=== PATIENT | male | born 1995 | race Caucasian/White ===

== ENCOUNTER 2018-06-11 10:47 | Emergency (ER) | payer MEDICAID ==
[~2018-06-11] VITALS: Ht 175.3 cm; Wt 86.2 kg
[2018-06-11 10:47] VITALS: BP_SYST 126
--- NOTE | 2018-06-11 10:47 | NUR ---
BROUGHT IN BY [facility] AND PLACED IN BED #1, REPORT GIVEN TO ROBERTO
--- NOTE | 2018-06-11 11:10 | NUR ---
MARBIN Kang at bedside examining patient.
--- NOTE | 2018-06-11 11:35 | NUR ---
PATIENT LYING DOWN ON THE GURNEY, COMFORTABLE, NON VERBAL, FACE CALM.
[2018-06-11 11:58] LABS: BASOPHILS % (AUTO) 0.2 % (0.0-2.0); EOSINOPHILS # (AUTO) 0.1 K/uL (0.0-0.4); EOSINOPHILS % (AUTO) 1.1 % (0.0-4.0); HEMATOCRIT 45.5 % (36-54); HEMOGLOBIN 15.6 g/dL (14.0-18.0); LYMPHOCYTES # (AUTO) 1.8 K/uL (1.0-5.5); LYMPHOCYTES % (AUTO) 31.3 % (20.5-51.5); MEAN CORPUSCULAR HEMOGLOBIN 28 pg (27-31); MEAN CORPUSCULAR HGB CONC 34 % (32-36); MEAN CORPUSCULAR VOLUME 82 fL (79.0-98.0); MONOCYTES # (AUTO) 0.6 K/uL (0.0-1.0); MONOCYTES % (AUTO) 9.9 % (1.7-9.3); NEUTROPHILS # (AUTO) 3.4 K/uL (1.8-7.7); NEUTROPHILS % (AUTO) 57.5 % (40.0-70.0); PLATELET COUNT (AUTO) 174 K/uL (130-430); RED BLOOD CELL COUNT(AUTO) 5.55 MIL/uL (4.2-6.2); RED CELL DISTRIBUTION WIDTH 14.8 % (9.0-15.0); WHITE BLOOD COUNT (AUTO) 5.9 K/uL (4.5-11.0)
[2018-06-11 12:02] LABS: CALCIUM 8.9 mg/dL (8.4-11.0); CREATININE 0.64 mg/dL (0.55-1.30); POTASSIUM 3.8 mmol/L (3.5-5.1)
[2018-06-11 12:07] LABS: ALBUMIN 3.6 g/dL (3.4-4.8); TOTAL BILIRUBIN 0.5 mg/dL (0.0-1.0)
--- NOTE | 2018-06-11 12:28 | NUR ---
Pt ambulated to bathroom with steady gait to provide urine sample. Pt aunt assisted pt to bathroom.
[2018-06-11 12:53] LABS: BILIRUBIN,URINE NEGATIVE (NEGATIVE); BLOOD, URINE NEGATIVE (NEGATIVE); CLARITY/URINE CLEAR (CLEAR); COLOR,URINE YELLOW (YELLOW); GLUCOSE,URINE NEGATIVE (NEGATIVE); KETONES,URINE NEGATIVE (NEGATIVE); LEUKOCYTE ESTERASE ,URINE NEGATIVE (NEGATIVE); NITRITE, URINE NEGATIVE (NEGATIVE); PH,URINE 5.5 (5.0-8.0); PROTEIN URINE NEGATIVE (NEGATIVE); UROBILINOGEN,URINE 0.2 (0.2-1.0)
[2018-06-11] MEDS: levETIRAcetam 500 MG TABLET PO ONE (12:56)
[2018-06-11 13:03] LABS: BARBITURATE, URINE NEGATIVE (NEG <=200); BENZODIAZEPINE, URINE NEGATIVE (NEG <=150); CANNABINOID, URINE NEGATIVE (NEG <=50); COCAINE, URINE NEGATIVE (NEG <=150); METHAMPHETAMINES SCREEN,URINE NEGATIVE (NEG <=500); OPIATE, URINE NEGATIVE (NEG <=100); PHENCYCLIDINE SCREEN,URINE NEGATIVE (NEG <=25); UR TRICYCLIC ANTIDEPRESSANTS NEGATIVE (NEG <=300); URINE AMPHETAMINE NEGATIVE (NEG <=500); URINE METHADONE NEGATIVE (NEG <=200); URINE OXYCODONE SCREEN NEGATIVE (NEG <=100); URINE PROPOXYPHENE SCREEN NEGATIVE (NEG <=300)
[2018-06-11 13:06] VITALS: BP_SYST 131
--- NOTE | 2018-06-11 13:07 | NUR ---
Patient given written and verbal discharge instructions and verbalizes understanding. ER MD discussed with patient the results and treatment provided. Patient in stable condition. ID arm band removed. Rx of NONE given. Patient educated on pain management and to follow up with PMD. Pain Scale 0/10. Opportunity for questions provided and answered. Medication side effect fact sheet provided.
== END 2018-06-11 13:07 | disposition home or self-care (01) ==
LOC: SED 10:47
DX: R56.9 Unspecified convulsions (principal)
CPT/HCPCS: 36415; 80053; 80307; 81003; 85025; 99283

== ENCOUNTER 2018-06-24 15:00 | Emergency (ER) | payer MEDICAID ==
[~2018-06-24] VITALS: Ht 175.3 cm; Wt 90.7 kg
[2018-06-24 15:00] VITALS: BP_SYST 148
--- NOTE | 2018-06-24 15:00 | NUR ---
BROUGHT IN BY [facility], PLACED IN BED #1 AND TRIAGED. REPORT GIVEN TO CARRILLO
--- NOTE | 2018-06-24 15:10 | NUR ---
Placed on cafeteria monitor, blood pressure machine and pulse oximeter. To gown for exam. Side rails up x2. SIDE RAIL PADDING APPLIED x2. PATIENT SITTING UP ON BED. AWAKE AND ALERT. PATIENT ABLE TO FOLLOW DIRECTIONS. DOES NOT ANSWER QUESTIONS APPROPRIATELY. PATIENT JUST REPEATS ALL WORDS THAT IS BEING SAID TO HIM. THIS IS HIS NORMAL ORIENTATION PER THE PARAMEDICS. PATIENT BROUGHT IN FOR x2 SEIZURE EPISODES WHILE AT SCHOOL WHICH LASTED FOR APPROXIMATELY 90 SECONDS. PATIENT IN NO ACUTE DISTRESS AT THIS TIME. PATIENT RESTING COMFORTABLY ON BED. SEIZURE PRECAUTIONS OBSERVED. WILL CONTINUE TO MONITOR.
[2018-06-24] MEDS ORDERED: ARIP5TAB10 PO (15:12)
[2018-06-24] MEDS ORDERED: VIT1TABL81 PO (15:12)
[2018-06-24] MEDS ORDERED: LEVE500T9 PO (15:12)
[2018-06-24] MEDS ORDERED: RISP1TAB7 PO (15:12)
[2018-06-24] MEDS ORDERED: CAT.2 PO (15:12)
[2018-06-24] MEDS ORDERED: DIVA250T PO (15:12)
--- NOTE | 2018-06-24 15:12 | NUR ---
Medication reconciliation completed with information provided by [facility]. Any prior medication reconciliation on file was reviewed and corrected.
--- NOTE | 2018-06-24 15:15 | NUR ---
ER Dr. SKY at bedside examining patient.
[2018-06-24 15:31] LABS: BASOPHILS % (AUTO) 0.4 % (0.0-2.0); EOSINOPHILS # (AUTO) 0.1 K/uL (0.0-0.4); HEMATOCRIT 46.1 % (36-54); HEMOGLOBIN 15.7 g/dL (14.0-18.0); LYMPHOCYTES % (AUTO) 35.6 % (20.5-51.5); MEAN CORPUSCULAR HEMOGLOBIN 28 pg (27-31); MEAN CORPUSCULAR HGB CONC 34 % (32-36); MEAN CORPUSCULAR VOLUME 83 fL (79.0-98.0); MONOCYTES # (AUTO) 0.5 K/uL (0.0-1.0); MONOCYTES % (AUTO) 8.9 % (1.7-9.3); NEUTROPHILS % (AUTO) 53.1 % (40.0-70.0); PLATELET COUNT (AUTO) 178 K/uL (130-430); RED BLOOD CELL COUNT(AUTO) 5.56 MIL/uL (4.2-6.2); RED CELL DISTRIBUTION WIDTH 14.6 % (9.0-15.0); WHITE BLOOD COUNT (AUTO) 5.7 K/uL (4.5-11.0)
[2018-06-24 16:09] LABS: CALCIUM 9.5 mg/dL (8.4-11.0); CREATININE 0.88 mg/dL (0.55-1.30); POTASSIUM 3.8 mmol/L (3.5-5.1)
[2018-06-24 16:14] LABS: ALBUMIN 3.8 g/dL (3.4-4.8); TOTAL BILIRUBIN 0.4 mg/dL (0.0-1.0)
--- NOTE | 2018-06-24 16:20 | NUR ---
Patient resting quietly. No acute distress noted. MOTHER AT BEDSIDE FOR SUPPORT. URINE SPECIMEN SENT TO LAB.
--- NOTE | 2018-06-24 17:00 | NUR ---
Patient resting quietly. No acute distress noted. Vital signs within normal range.
[2018-06-24 17:26] LABS: BARBITURATE, URINE NEGATIVE (NEG <=200); BENZODIAZEPINE, URINE NEGATIVE (NEG <=150); CANNABINOID, URINE NEGATIVE (NEG <=50); COCAINE, URINE NEGATIVE (NEG <=150); METHAMPHETAMINES SCREEN,URINE NEGATIVE (NEG <=500); OPIATE, URINE NEGATIVE (NEG <=100); PHENCYCLIDINE SCREEN,URINE NEGATIVE (NEG <=25); UR TRICYCLIC ANTIDEPRESSANTS NEGATIVE (NEG <=300); URINE AMPHETAMINE NEGATIVE (NEG <=500); URINE METHADONE NEGATIVE (NEG <=200); URINE OXYCODONE SCREEN NEGATIVE (NEG <=100); URINE PROPOXYPHENE SCREEN NEGATIVE (NEG <=300)
--- NOTE | 2018-06-24 18:00 | NUR ---
Patient resting quietly. No acute distress noted.
[2018-06-24 18:52] VITALS: BP_SYST 136
--- NOTE | 2018-06-24 18:52 | NUR ---
Patient's MOTHER AND PT'S CAREGIVER given written and verbal discharge instructions and verbalizes understanding. ER MD discussed with patient's MOTHER AND PT'S CAREGIVER the results and treatment provided. Patient in stable condition. ID arm band removed. IV catheter removed intact and dressing applied, no active bleeding. No Rx given. Patient's MOTHER AND PT'S CAREGIVER educated on pain management and to follow up with PMD. Pain Scale 0/10. Opportunity for questions provided and answered. Medication side effect fact sheet provided. PATIENT IN GOOD CONDITION AND IN NO ACUTE DISTRESS. PT WITH NO EPISODES OF SEIZURE ACTIVITY DURING ED STAY. PATIENT NOTED WITH A STABLE GAIT.
== END 2018-06-24 18:52 | disposition home or self-care (01) ==
LOC: SED 15:00
DX: R56.9 Unspecified convulsions (principal); F84.0 Autistic disorder; Z79.899 Other long term (current) drug therapy
CPT/HCPCS: 36415; 80053; 80307; 85025; 93005; 99284

== ENCOUNTER 2022-02-28 09:05 | Emergency (ER) | payer MEDICAID ==
[~2022-02-28] VITALS: Ht 170.2 cm; Wt 65.3 kg
[~2022-02-28 09:05] MED LIST: ARIP5TAB10 PO; CAT.2 PO; DIVA250T PO; LEVE500T9 PO; RISP1TAB7 PO; VIT1TABL81 PO
--- NOTE | 2022-02-28 09:20 | NUR ---
Placed in room 05 . Placed on keyliner, blood pressure machine and pulse oximeter. To gown for exam. Side rails up. Report given to YENI IZAGUIRRE.
[2022-02-28 09:24] VITALS: BP_SYST 115
--- NOTE | 2022-02-28 09:26 | NUR ---
PT BIB [employer] FROM [facility], AWAKE AND CONFUSED. PT IS NON VERBAL AND AUTISTIC. PT PRESENTED TO ER FOR MEDICAL CLEARANCE DUE TO SMALL 1 CM LACERATION TO BACK OF HEAD. NO BLEEDING OR SWELLING NOTED. PT DOES NOT LOOK TO BE IN PAIN.
--- NOTE | 2022-02-28 09:29 | NUR ---
MD DR KELLY AT BEDSIDE
== END 2022-02-28 09:34 | disposition home or self-care (01) ==
LOC: SED 09:05
DX: S09.90XA Unspecified injury of head, initial encounter (principal); Z79.899 Other long term (current) drug therapy; X58.XXXA Exposure to other specified factors, initial encounter; Y93.89 Activity, other specified; Y92.89 Other specified places as the place of occurrence of the external cause; Y99.8 Other external cause status
CPT/HCPCS: 99281